=== PATIENT | female | born 1940 | race Caucasian/White ===

== ENCOUNTER 2018-05-13 10:56 | Day surgery (SDC) | payer MEDICARE, OTHER ==
[~2018-05-13 10:56] MED LIST: Sodium Chloride 0.9% 10 ML Syringe FLUSH PRN
[2018-05-13] MEDS: Lactated Ringers 1,000 ML IV SCH (11:32)
--- NOTE | 2018-05-13 11:39 | PCM.HPR ---
H & P Addendum review - H & P Addendum Review Date of Original H & P: 05/03/18 Date Reviewed: 05/13/18 Time Reviewed: 11:39 Patient was Examined: No Changes
[2018-05-13] MEDS ORDERED: Propofol 200 MG/20 ML SDV ONE ×2 (11:41→11:44)
[2018-05-13] MEDS ORDERED: fentaNYL 100 MCG/2 ML SDV ONE ×2 (11:41→11:44)
[2018-05-13] MEDS ORDERED: Midazolam 1 MG/ML 2 ML SDV ONE ×2 (11:41→11:44)
--- NOTE | 2018-05-13 12:11 | PCM.OPNOTE ---
- General Post-Op/Procedure Note Date of Surgery/Procedure: 05/13/18 Operative Procedure(s): Colonoscopy Findings: Sig Tics Pre Op Diagnosis: Screening Post-Op Diagnosis: Same Anesthesia Technique: MAC Primary Surgeon: Scar Ca Anesthesia Provider: Regina Moreno Complications: None Condition: Good Free Text/Narrative:: Intake & Output 05/12/18 05/13/18 05/13/18 22:59 06:59 14:59 Intake Total 200 Balance 200
--- NOTE | 2018-05-13 18:04 | OR ---
Date of Procedure: 05/13/2018 PREOPERATIVE DIAGNOSIS: Colon screening. POSTOPERATIVE DIAGNOSIS: Sigmoid diverticulosis. PROCEDURE: Colonoscopy. ANESTHESIA: IV sedation. DESCRIPTION OF PROCEDURE: The patient was brought to the procedure room, where she was placed on the left side and IV sedation administered. Digital rectal exam was performed which was normal. Colonoscope was inserted and advanced to the level of the cecum with some difficulty getting through a tortuous sigmoid colon. With pressure on the abdomen, I was able to advance to the cecum which was confirmed by identifying the appendiceal lumen and ileocecal valve. Prep was good and surfaces were well visualized. Upon withdrawing the scope, the ascending, transverse, and descending colon were normal in appearance. The sigmoid colon had multiple diverticula present. Rectum was normal and retroflexion was normal. Air was removed and the scope withdrawn. The patient tolerated the procedure well and returned to recovery in stable condition. The patient does not need to undergo any further colon screening due to age. LUI CASTRO MD /[id number]
== END 2018-05-13 14:05 | disposition home or self-care (01) ==
LOC: LL.SDS 10:56
PROVIDERS: ATTEND Surgery
DX: Z12.11 Encounter for screening for malignant neoplasm of colon (principal); K57.30 Diverticulosis of large intestine without perforation or abscess without bleeding; I10 Essential (primary) hypertension; E03.9 Hypothyroidism, unspecified; I25.10 Atherosclerotic heart disease of native coronary artery without angina pectoris; Z86.73 Personal history of transient ischemic attack (TIA), and cerebral infarction without residual deficits; Z79.02 Long term (current) use of antithrombotics/antiplatelets; Z79.899 Other long term (current) drug therapy; Z88.7 Allergy status to serum and vaccine; Z88.8 Allergy status to other drugs, medicaments and biological substances
CPT/HCPCS: J2250; J2704; J3010; J7120